=== PATIENT | male | born 1985 | race Caucasian/White ===

== ENCOUNTER 2016-12-02 21:36 | Emergency (ER) | payer OTHER ==
[~2016-12-02] VITALS: Ht 182.9 cm; Wt 62.0 kg
[~2016-12-02 21:36] MED LIST: ALLEGRA-D12 HOUR PO; CIPROFLOXACN500 MG PO; LORTAB 5 OR; NO HOME MEDS; ULTRAM50 MG OR
[2016-12-03 00:37] VITALS: BP 118/69
== END 2016-12-03 00:43 | disposition left against medical advice (07) | DRG 605 ==
LOC: ED 21:36
DX: S01.91XA Laceration without foreign body of unspecified part of head, initial encounter (principal); R42 Dizziness and giddiness; W18.39XA Other fall on same level, initial encounter; Z91.19 Patient's noncompliance with other medical treatment and regimen

== ENCOUNTER 2018-04-23 10:43 | Emergency (ER) | payer SELFPAY ==
[~2018-04-23] VITALS: Ht 182.9 cm; Wt 65.5 kg
[2018-04-23] MEDS ORDERED: ADDERALL20 MG PO (10:55)
[2018-04-23 12:34] LABS: URINE BILIRUBIN - DIPSTICK NEGATIVE (NEGATIVE); URINE BLOOD DIPSTICK NEGATIVE (NEGATIVE); URINE COLOR YELLOW; URINE GLUCOSE - DIPSTICK NEGATIVE (NEGATIVE); URINE KETONE NEGATIVE (NEGATIVE); URINE LEUK ESTERASE NEGATIVE (Negative); URINE NITRITE - DIPSTICK NEGATIVE (Negative); URINE PH 7.5 (4.5-8.0); URINE PROTEIN - DIPSTICK NEGATIVE (NEG-TRACE)
[2018-04-23 12:35] LABS: URINE CLARITY CLEAR
[2018-04-23] MEDS ORDERED: TORADOL PO (12:52)
[2018-04-23 12:56] VITALS: BP 134/87
== END 2018-04-23 13:15 | disposition home or self-care (01) | DRG 730 ==
LOC: ED 10:43
PROVIDERS: Emergency Medicine
DX: N50.812 Left testicular pain (principal); N50.811 Right testicular pain; F17.210 Nicotine dependence, cigarettes, uncomplicated

== ENCOUNTER 2018-08-17 20:57 | Emergency (ER) | payer SELFPAY ==
[~2018-08-17] VITALS: Ht 182.9 cm; Wt 63.0 kg
[~2018-08-17 20:57] MED LIST changes: +ADDERALL20 MG PO; +TORADOL PO
[2018-08-17 21:09] VITALS: BP 143/87
[2018-08-17] MEDS ORDERED: ACIDOPHILUS1 CAP PO (21:16)
[2018-08-17] MEDS ORDERED: BACTRIM DS1 TAB PO ×2 (21:16→22:17)
[2018-08-17] MEDS ORDERED: CLINDAMYCIN HC150 MG PO (21:16)
[2018-08-17 22:00] LABS: HEMATOCRIT 42.4 % (39.0-50.0); HEMOGLOBIN 14.4 g/dl (14.0-18.0); IMMATURE GRANULOCYTES 0.3 % (0.0-5.0); MEAN CELL VOLUME 88.3 fL CALC (80.0-100.0); NEUT# 8.45 thou/uL (1.82-7.42); RED BLOOD COUNT 4.8 mill/uL (4.70-6.10); RED CELL DISTRI WIDTH 12.4 % (11.5-15.5)
[2018-08-17 22:14] LABS: ALBUMIN 4.2 g/dL (3.2-5.0); ALKALINE PHOSPHATASE 78 u/l (38-126); ANION GAP 15 (6-22 (CALC)); BILIRUBIN, TOTAL 0.4 mg/dL (0.0-1.4); BUN 10 mg/dL (9-20); BUN/CREATININE RATIO 11 (12-20 (CALC)); CARBON DIOXIDE 28 mmol/l (22-30); CHLORIDE 100 mmol/l (95-108); CREATININE 0.9 mg/dL (0.7-1.3); GFR > 60 ML/MIN (>=60 (CALC)); GFR FOR AFR.AMER. > 60 ML/MIN (>=60 (CALC)); POTASSIUM 3.9 mmol/l (3.5-5.1); SGOT/AST 38 u/l (17-59); SODIUM 138 mmol/l (137-146); TOTAL PROTEIN 7.2 g/dL (6.3-8.2)
[2018-08-17] MEDS ORDERED: LORTAB 1010 MG PO (22:17)
== END 2018-08-17 22:35 | disposition home or self-care (01) | DRG 603 ==
LOC: ED 20:57
PROVIDERS: Emergency Medicine
PROC: 0H9DXZZ Drainage of Right Lower Arm Skin, External Approach (ICD-10-PCS; principal; 2018-08-17)
DX: L02.413 Cutaneous abscess of right upper limb (principal); R50.9 Fever, unspecified; B95.62 Methicillin resistant Staphylococcus aureus infection as the cause of diseases classified elsewhere

== ENCOUNTER 2018-08-18 20:29 | Emergency (ER) | payer SELFPAY ==
[~2018-08-18] VITALS: Ht 182.9 cm; Wt 64.0 kg
[~2018-08-18 20:29] MED LIST changes: +ACIDOPHILUS1 CAP PO; +BACTRIM DS1 TAB PO; +CLINDAMYCIN HC150 MG PO; +LORTAB 1010 MG PO
[2018-08-18 21:27] VITALS: BP 129/88
== END 2018-08-18 21:29 | disposition home or self-care (01) | DRG 951 ==
LOC: ED 20:29
DX: Z48.01 Encounter for change or removal of surgical wound dressing (principal)

== ENCOUNTER 2018-08-19 19:52 | Emergency (ER) | payer SELFPAY ==
[~2018-08-19] VITALS: Ht 182.9 cm; Wt 64.0 kg
[2018-08-19 20:27] VITALS: BP 134/70
== END 2018-08-19 20:28 | disposition home or self-care (01) | DRG 951 ==
LOC: ED 19:52
DX: Z48.01 Encounter for change or removal of surgical wound dressing (principal)

== ENCOUNTER 2019-02-05 08:46 | Emergency (ER) | payer MEDICAID ==
[~2019-02-05] VITALS: Ht 182.9 cm; Wt 70.0 kg
[2019-02-05 10:01] LABS: HEMATOCRIT 42.7 % (39.0-50.0); HEMOGLOBIN 14.4 g/dl (14.0-18.0); IMMATURE GRANULOCYTES 0.4 % (0.0-5.0); MEAN CELL VOLUME 90.7 fL CALC (80.0-100.0); MEAN CORPUSCULAR HGB 30.6 pG CALC (26.0-32.0); MEAN CORPUSCULAR HGB CONC 33.7 g/L CALC (32.0-36.0); NEUT# 8.34 thou/uL (1.82-7.42); RED BLOOD COUNT 4.71 mill/uL (4.70-6.10); RED CELL DISTRI WIDTH 12.1 % (11.5-15.5)
[2019-02-05 10:19] LABS: ALBUMIN 4.2 g/dL (3.2-5.0); ALKALINE PHOSPHATASE 61 u/l (38-126); ANION GAP 11 (6-22 (CALC)); BUN 10 mg/dL (9-20); BUN/CREATININE RATIO 12 (12-20 (CALC)); CARBON DIOXIDE 31 mmol/l (22-30); CHLORIDE 103 mmol/l (95-108); CREATININE 0.8 mg/dL (0.7-1.3); GFR > 60 ML/MIN (>=60 (CALC)); GFR FOR AFR.AMER. > 60 ML/MIN (>=60 (CALC)); POTASSIUM 3.9 mmol/l (3.5-5.1); SGOT/AST 23 u/l (17-59); SODIUM 141 mmol/l (137-146); TOTAL PROTEIN 6.6 g/dL (6.3-8.2)
[2019-02-05] MEDS ORDERED: ULTRAM50 M1 PO (11:48)
[2019-02-05] MEDS ORDERED: CEPHALEXIN500 MG PO (11:48)
[2019-02-05] MEDS ORDERED: BACTRIM DS1 TAB PO (11:48)
[2019-02-05 11:55] VITALS: BP 141/99
== END 2019-02-05 12:03 | disposition home or self-care (01) ==
LOC: ED 08:46
PROVIDERS: Emergency Medicine
DX: L03.211 Cellulitis of face (principal); R50.9 Fever, unspecified; R22.0 Localized swelling, mass and lump, head
CPT/HCPCS: Q9967

== ENCOUNTER 2019-03-31 03:17 | Emergency (ER) | payer MEDICAID ==
[~2019-03-31] VITALS: Ht 182.9 cm; Wt 90.0 kg
[~2019-03-31 03:17] MED LIST changes: +CEPHALEXIN500 MG PO; +ULTRAM50 M1 PO
[2019-03-31 04:07] LABS: HEMATOCRIT 42.7 % (39.0-50.0); HEMOGLOBIN 14.5 g/dl (14.0-18.0); IMMATURE GRANULOCYTES 0.5 % (0.0-5.0); MEAN CELL VOLUME 90.1 fL CALC (80.0-100.0); MEAN CORPUSCULAR HGB 30.6 pG CALC (26.0-32.0); NEUT# 11.92 thou/uL (1.82-7.42); RED BLOOD COUNT 4.74 mill/uL (4.70-6.10); RED CELL DISTRI WIDTH 12.2 % (11.5-15.5)
[2019-03-31 04:10] LABS: ALBUMIN 4.3 g/dL (3.2-5.0); ALKALINE PHOSPHATASE 86 u/l (38-126); ANION GAP 14 (6-22 (CALC)); BILIRUBIN, TOTAL 0.9 mg/dL (0.0-1.4); BUN 9 mg/dL (9-20); BUN/CREATININE RATIO 12 (12-20 (CALC)); CARBON DIOXIDE 30 mmol/l (22-30); CHLORIDE 98 mmol/l (95-108); CREATININE 0.8 mg/dL (0.7-1.3); GFR > 60 ML/MIN (>=60 (CALC)); GFR FOR AFR.AMER. > 60 ML/MIN (>=60 (CALC)); POTASSIUM 3.7 mmol/l (3.5-5.1); SGOT/AST 35 u/l (17-59); SODIUM 138 mmol/l (137-146); TOTAL PROTEIN 7.1 g/dL (6.3-8.2)
[2019-03-31] MEDS ORDERED: KEFLEX500 MG PO (05:32)
[2019-03-31] MEDS ORDERED: CIPROFLOXACN500 MG PO (05:32)
[2019-03-31 05:45] VITALS: BP 139/91
== END 2019-03-31 05:50 | disposition home or self-care (01) ==
LOC: ED 03:17
PROVIDERS: Emergency Medicine
DX: L02.01 Cutaneous abscess of face (principal); F17.210 Nicotine dependence, cigarettes, uncomplicated
CPT/HCPCS: Q9967

== ENCOUNTER 2020-11-23 13:22 | Emergency (ER) | payer OTHER ==
[~2020-11-23] VITALS: Ht 182.9 cm; Wt 65.9 kg
[~2020-11-23 13:22] MED LIST changes: +KEFLEX500 MG PO
[2020-11-23] MEDS ORDERED: LORTAB 7.57.5 MG PO (14:52)
[2020-11-23 15:12] VITALS: BP 115/79
== END 2020-11-23 15:12 | disposition home or self-care (01) ==
LOC: ED 13:22
DX: S62.305A Unspecified fracture of fourth metacarpal bone, left hand, initial encounter for closed fracture (principal); S62.307A Unspecified fracture of fifth metacarpal bone, left hand, initial encounter for closed fracture; F17.210 Nicotine dependence, cigarettes, uncomplicated; W22.09XA Striking against other stationary object, initial encounter; Y92.009 Unspecified place in unspecified non-institutional (private) residence as the place of occurrence of the external cause

== ENCOUNTER 2022-07-26 04:34 | Emergency (ER) | payer OTHER ==
[~2022-07-26] VITALS: Ht 182.9 cm; Wt 60.0 kg
[~2022-07-26 04:34] MED LIST changes: +LORTAB 7.57.5 MG PO
[2022-07-26 05:00] VITALS: BP 146/97
== END 2022-07-26 05:32 | disposition home or self-care (01) ==
LOC: ED 04:34
DX: S93.401A Sprain of unspecified ligament of right ankle, initial encounter (principal); F17.200 Nicotine dependence, unspecified, uncomplicated; X50.0XXA Overexertion from strenuous movement or load, initial encounter; Y93.H9 Activity, other involving exterior property and land maintenance, building and construction

== ENCOUNTER 2023-06-22 00:01 | Emergency (ER) | payer SELFPAY | END 2023-06-22 00:21 | disposition left against medical advice (07) | DRG 951 | LOC: ED 00:01 → LWOBS 00:21 | DX: Z53.21 Procedure and treatment not carried out due to patient leaving prior to being seen by health care provider (principal) ==

== ENCOUNTER 2023-06-25 01:35 | Emergency (ER) | payer SELFPAY ==
[~2023-06-25] VITALS: Ht 182.9 cm; Wt 58.0 kg
[2023-06-25 01:43] VITALS: BP 149/107
[2023-06-25] MEDS ORDERED: BACTRIM DS1 TAB PO (01:45)
[2023-06-25 01:46] VITALS: BP 126/85
[2023-06-25 01:47] VITALS: BP 126/85
== END 2023-06-25 02:03 | disposition home or self-care (01) | DRG 607 ==
LOC: ED 01:35
DX: L13.1 Subcorneal pustular dermatitis (principal); F15.10 Other stimulant abuse, uncomplicated; F17.200 Nicotine dependence, unspecified, uncomplicated

== ENCOUNTER 2023-10-31 01:57 | Emergency (ER) | payer SELFPAY ==
[~2023-10-31] VITALS: Ht 182.9 cm; Wt 65.0 kg
[2023-10-31] VITALS (23 sets, daily range): BP systolic 131–173; BP diastolic 80–124
== END 2023-10-31 11:20 | DRG 563 ==
LOC: ED 01:57
DX: S92.412B Displaced fracture of proximal phalanx of left great toe, initial encounter for open fracture (principal); F17.200 Nicotine dependence, unspecified, uncomplicated; W29.8XXA Contact with other powered hand tools and household machinery, initial encounter; Y92.009 Unspecified place in unspecified non-institutional (private) residence as the place of occurrence of the external cause

== ENCOUNTER 2023-12-09 05:19 | Emergency (ER) | payer SELFPAY ==
[~2023-12-09] VITALS: Ht 182.9 cm; Wt 68.0 kg
[2023-12-09] MEDS ORDERED: VANCOMYCIN HCL 1 GM in SODIUM CHLORIDE 0.9% 250 ML IV ONE (06:00)
[2023-12-09] MEDS ORDERED: KETOROLAC TROMETHAMINE 30 MG/ML SDV IV ONE (06:00)
[2023-12-09] MEDS ORDERED: SODIUM CHLORIDE 0.9% 1,000 ML IV ONE (06:00)
[2023-12-09] MEDS ORDERED: PIPERACILLIN Sodium-Tazobactam 3.375 GM in SODIUM CHLORIDE 0.9% 100 ML IV ONE (06:00)
[2023-12-09 07:14] LABS: BASO% 0.4 % (0-3); EOS% 3.4 % (0-8); HEMATOCRIT 41.4 % (39.0-50.0); HEMOGLOBIN 13.9 g/dl (14.0-18.0); IMMATURE GRANULOCYTES 0.1 % (0.0-5.0); MEAN CELL VOLUME 90.4 fL CALC (80.0-100.0); MEAN CORPUSCULAR HGB 30.3 pG CALC (26.0-32.0); MEAN CORPUSCULAR HGB CONC 33.6 g/dL CAL (32.0-36.0); MONO% 9.5 % (2-13); NEUT# 4.57 thou/uL (1.82-7.42); NEUT% 66.6 % (42-76); RED BLOOD COUNT 4.58 mill/uL (4.70-6.10)
[2023-12-09 07:52] LABS: ALBUMIN 4.2 g/dL (3.2-5.0); ALKALINE PHOSPHATASE 101 u/l (38-126); ANION GAP 9 (6-22 (CALC)); BUN 15 mg/dL (9-20); BUN/CREATININE RATIO 18 (12-20 (CALC)); C-REACTIVE PROTEIN 2.2 mg/dL (0-0.9); CARBON DIOXIDE 33 mmol/l (22-30); CHLORIDE 103 mmol/l (95-108); CPK 119 u/l (55-170); CREATININE 0.8 mg/dL (0.7-1.3); GFR FOR AFR.AMER. > 60 ML/MIN (>=60 (CALC)); GFR OTHER RACES > 60 ML/MIN (>=60 (CALC)); POTASSIUM 4.4 mmol/l (3.5-5.1); SGOT/AST 42 u/l (17-59); SODIUM 141 mmol/l (137-146); TOTAL PROTEIN 7.1 g/dL (6.3-8.2)
[2023-12-09 07:56] LABS: PROTHROMBIN TIME 9.5 SECONDS (9.0-12.5)
[2023-12-09 08:01] LABS: BILIRUBIN, TOTAL 0.4 mg/dL (0.2-1.3)
[2023-12-09 10:25] VITALS: BP 127/86
== END 2023-12-09 10:25 | DRG 863 ==
LOC: ED 05:19
PROVIDERS: Internal Medicine
DX: T81.49XA Infection following a procedure, other surgical site, initial encounter (principal); L03.032 Cellulitis of left toe; L03.116 Cellulitis of left lower limb; F17.200 Nicotine dependence, unspecified, uncomplicated; Y83.8 Other surgical procedures as the cause of abnormal reaction of the patient, or of later complication, without mention of misadventure at the time of the procedure; Z59.00 Homelessness unspecified